=== PATIENT | female | born 1995 | race Two or more races ===

== ENCOUNTER 2023-09-14 21:43 | Emergency (ER) | payer OTHER ==
[~2023-09-14] VITALS: Ht 162.6 cm; Wt 114.2 kg
[2023-09-14 22:30] LABS: Urine Bacteria FEW /hpf (None Seen); Urine Blood 2+ /uL (Negative); Urine Clarity Clear (Clear); Urine Color Light-Yellow (Yellow); Urine Protein, UAD Negative (Negative); Urine Specific Gravity 1.024 (1.001-1.035); Urine Urobilinogen Normal (Negative); Urine WBC 2 /hpf (0 - 5)
[2023-09-14 22:55] LABS: Basophils # (auto) 0 10 ^3/uL (0-0.2); Basophils % (auto) 0.4 % (0.0-2.0); Eosinophils # (auto) 0.4 10 ^3/uL (0-0.8); Eosinophils % (auto) 3.4 % (0.0-7.0); Hematocrit 45.4 % (36.0-46.0); Lymphocytes # (auto) 3.9 10 ^3/uL (0.4-5.4); Mean Corpuscular Hemoglobin 28.8 pg (28.0-32.0); Mean Corpuscular Hgb Conc. 33.1 g/dL (32.0-36.0); Mean Corpuscular Volume 87.1 fL (80.0-100.0); Monocytes # (auto) 0.6 10 ^3/uL (0-1.3); Monocytes % (auto) 5.1 % (0.0-12.0); Neutrophils # (auto) 6.3 10 ^3/uL (1.6-8.6); Neutrophils % (auto) 56.1 % (37.0-80.0); Nucleated Red Blood Cells % 0.1 %; Red Blood Cells 5.21 10^6/uL (4.0-5.20); White Blood Cell 11.3 10^3/uL (4.4-10.8)
[2023-09-14 23:12] LABS: Alanine Aminotransferase 51 U/L (7-40); Albumin 4.7 g/dL (3.2-4.8); Alkaline Phosphatase 122 U/L (46-116); Anion Gap 7 (5-15); Aspartate Aminotransferase 30 U/L (13-40); BUN/Creatinine Ratio 15.4 (10.0-20.0); Bilirubin, Total 0.5 mg/dL (0.2-1.0); Blood Urea Nitrogen 10 mg/dL (9-23); Carbon Dioxide 25 mmol/L (20-30); Chloride 106 mmol/L (98-107); Glucose 91 mg/dL (74-106); Lipase 37 U/L (12-53); Sodium 138 mmol/L (136-145); Total Protein 7.9 g/dL (5.7-8.2)
[2023-09-14] MEDS ORDERED: ZOFR4T PO (23:50)
[2023-09-14] MEDS ORDERED: DICY10CA PO (23:50)
[2023-09-15] MEDS ORDERED: ONDANSETRON ODT 4 MG TAB ONE (00:47)
[2023-09-15] MEDS: ONDANSETRON ODT 4 MG TAB PO ONE (01:01)
[2023-09-15 01:04] VITALS: BP 143/93; PULSE 75; RESP 16; TEMP 98.6; O2SAT 100
== END 2023-09-15 01:06 | disposition home or self-care (01) ==
LOC: ER 21:43
DX: R10.11 Right upper quadrant pain (principal); K80.20 Calculus of gallbladder without cholecystitis without obstruction
CPT/HCPCS: 36415; 80053; 81001; 81025; 83690; 85025; 99283; Q0162